=== PATIENT | female | born 2005 | race Two or more races ===

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

== ENCOUNTER 2024-02-20 22:04 | Inpatient (IN) | payer MEDICAID, OTHER ==
[~2024-02-20] VITALS: Ht 175.3 cm; Wt 67.7 kg
[~2024-02-20 22:04] MED LIST: BACDST PO; IBUP-1454 PO
--- NOTE | 2024-02-20 22:25 | ED.PDOC ---
GI ASSESSMENT HPI Comments 18 year old female brought in by family complaining of abdominal pain, nausea and vomiting. Patient states she developed sudden onset sharp, cramping intermittent epigastric abdominal pain yesterday, radiating to her lower back and associated with bouts of nausea and vomiting.Noted also to have productive cough. Denies any fever or changes in bowel habits. She does have history of diabetes and noted that her blood sugar levels has been elevated recently (>220) so she took 6 units of insulin prior to coming to the ER. Blood sugar upon arrival was 218. Chief Complaint: Abdominal Pain Time Seen by MD: 22:24 Primary Care Provider: OUT OF AREA Reviewed Notes: Nurses Notes Allergies: Coded Allergies: NO KNOWN ALLERGIES (Unverified , 02/20/24) Home Meds Active Scripts Ibuprofen (Ibuprofen) 600 Mg Tab, 1 TAB PO TID, #30 TAB Prov:TITO LAGUNAS 05/29/22 Sulfamethoxazole W/Trimethopri (Bactrim Ds Tablet) 1 Tab Tb, 1 TAB PO BID for 10 Days, #20 TAB Prov:TITO LAGUNAS 05/29/22 Information Source: Patient Mode of Arrival: Ambulatory Duration: Intermittent Prehospital treatment: None Quality: Cramping, Sharp Vomitus: Watery Stool: Normal Severity: Moderate Recent: None Recent Hx of: Diabetes Pain Location: Epigastric Modifying Factors: Nothing Associated sign and symptoms: Nausea, Vomiting, Abdominal Pain Past Medical History PAST MEDICAL HISTORY: DM Past Medical History (Other): Restrictive Cardiomyopathy Surgical History (Other): Heart Transplant 09/2019 RAFTSMAN History: Denies all RAFTSMAN Hx Family History Family History: Reviewed,noncontributory to illness Social History Smoker: Non-Smoker Alcohol: Denies ETOH Use Drugs: Denies Drug Use Lives In: Home Constitutional: denies: chills, diaphoresis, fatigue, fever, malaise, sweats, weakness, others EENTM: denies: blurred vision, double vision, ear bleeding, ear discharge, ear drainage, ear pain, ear ringing, eye pain, eye redness, hearing loss, mouth pain, mouth swelling, nasal discharge, nose bleeding, nose congestion, nose pain, photophobia, tearing, throat pain, throat swelling, voice changes, others Respiratory: reports: cough; denies: hemoptysis, orthopnea, SOB at rest, shortness of breath, SOB with excertion, stridor, wheezing, others Cardiovascular: denies: chest pain, dizzy spells, diaphoresis, Dyspnea on exertion, edema, irregular heart beat, left arm pain, lightheadedness, palpitations, PND, syncope, others Gastrointestinal: reports: abdominal pain, nausea, vomiting; denies: abdomen distended, blood streaked bowels, constipated, diarrhea, dysphagia, difficulty swallowing, hematemesis, melena, poor appetite, poor fluid intake, rectal bleeding, rectal pain, others Genitourinary: denies: abnormal vagina bleeding, burning, dyspareunia, dysuria, flank pain, frequency, hematuria, incontinence, pain, , vagina discharge, urgency, others Neurological: denies: dizziness, fainting, headache, left sided numbness, left sided weakness, numbness, paresthesia, pre-existing deficit, right sided numbness, right sided weakness, seizure, speech problems, tingling, tremors, weakness, others Musculoskeletal: reports: back pain; denies: gout, joint pain, joint swelling, muscle pain, muscle stiffness, neck pain, others Integumetry: denies: bruises, change in color, change in hair/nails, dryness, laceration, lesions, lumps, rash, wounds, others Allergic/Immunocompromised: denies: Difficulty Healing, Frequent Infections, Hives, Itching, others Hematologic/Lymphatic: denies: anemia, blood clots, easy bleeding, easy bruising, swollen glands, others Endocrine: denies: excessive hunger, excessive sweating, excessive thirst, excessive urination, flushing, intolerance to cold, intolerance to heat, unexplained weight gain, unexplained weight loss, others Psychiatric: denies: anxiety, bipolar disorder, depression, hopeless, panic disorder, schizophrenia, sleepless, suicidal, others Physical Exam General Appearance: Mild Distress HEENT: Other (Dry mucous membranes) Neck: Full Range of Motion, Normal Inspection Respiratory: Lungs Clear, No Accessory Muscle Use, No Respiratory Distress, Normal Breath Sounds Cardiovascular: No Edema, No JVD, Regular Rate/Rhythm Breast Exam: Deferred Gastrointestinal: Epigastric, LUQ, RUQ, Soft, Tenderness Genitalia: Deferred Pelvic: Deferred Rectal: Deferred Extremities: Normal inspection, Normal range of motion, Non-tender, No pedal edema Neurologic: Alert (Oriented x4), Normal Affect, Normal Mood, Other (Ambulatory without difficulty. No gross focal deficit.) Cerebellar Function: NOT DONE Reflexes: NOT DONE Skin: Dry, Pallor, Warm Lymphatic: NOT DONE EKG EKG : Comments Sinus tach, rate 123, normal intervals, leg itching borderline right axis deviation, she was on admission normal QRS, T-wave inversion with minimal ST depression in inferior lateral leads Was a procedure done? Was a procedure done?: No GI differential Dx Differential Diagnosis: Cholecystitis, Diverticular disease, Gastritis/PUD, Gastroenteritis, Inflammatory BD, Ischemic Bowel, Pancreatitis, UTI, Urolithiasis, Dehydration, Diabetes/ DKA, Electrolyte Imbalance, Food Poisoning, , Bacterial, Parasitic, Viral, Hypovolemia, Impaction, Stress Ulcer X-Ray, Labs, Meds, VS Vital Signs Date Time Temp Pulse Resp B/P (MAP) Pulse Ox O2 Delivery O2 Flow Rate FiO2 02/21/24 01:25 119 20 124/65 02/21/24 01:06 98.3 119 20 124/65 (84) 97 98.3 02/20/24 22:20 123 02/20/24 22:08 98.0 133 16 128/84 (99) 98 Lab Test 02/21/24 01:14 02/21/24 00:15 02/20/24 22:33 02/20/24 22:29 Range/Units Blood Gas Specimen Type Arterial Blood Gas Sample Site Left radial Blood Gas Patient Temperature 37.0 Arterial Blood Date Drawn [id number] Arterial Blood pH 7.560 *H 7.350-7.450 Arterial Blood Partial Pressure CO2 23.0 L 32.0-45.0 mmHg Arterial Blood Partial Pressure O2 96.6 83.0-108.0 mmHg Arterial Blood HCO3 20.1 L 21.0-28.0 mmol/L Arterial Blood Oxygen Saturation 98.2 H 94.0-98.0 % Arterial Blood Base Excess 0.2 -2.0-3.0 mmol/L Arterial Blood Oxyhemoglobin 97.1 94.0-98.0 % Arterial Blood Carboxyhemoglobin 0.4 L 0.5-1.5 % Arterial Blood Methemoglobin 0.7 0.0-1.5 % Nahun Test Yes Blood Gas Total Hemoglobin 16.20 H 12.0-16.0 g/dL Blood Gas Modality Room air FiO2 % 21.0 Blood Gas Critical Value Read Back Yes Blood Gas Notified Whom Patricio driver md Blood Gas Notified Time [id number] Blood Gas Notified By Rosamaria spear rrt Lactic Acid Level 2.8 *H 4.3 *H 0.4-2.0 mmol/L Troponin I High Sensitivity < 3 L 3 L </=34 ng/L Triglycerides Level Pending Cholesterol Level Pending LDL Cholesterol Pending HDL Cholesterol Pending Beta-Hydroxybutyric Acid 1.200 H < 0.4 mmol/L White Blood Count 8.5 4.4-10.8 10^3/uL Red Blood Count 5.78 H 4.0-5.20 10^6/uL Hemoglobin 17.5 H 12.2-16.2 g/dL Hematocrit 51.1 H 36.0-46.0 % Mean Corpuscular Volume 88.5 80.0-100.0 fL Mean Corpuscular Hemoglobin 30.3 28.0-32.0 pg Mean Corpuscular Hemoglobin Concent 34.2 32.0-36.0 g/dL Red Cell Distribution Width 13.0 11.8-14.3 % Platelet Count 283 140-450 10^3/uL Mean Platelet Volume 9.4 6.9-10.8 fL Neutrophils (%) (Auto) 78.0 37.0-80.0 % Lymphocytes (%) (Auto) 8.3 L 10.0-50.0 % Monocytes (%) (Auto) 12.1 H 0.0-12.0 % Eosinophils (%) (Auto) 0.8 0.0-7.0 % Basophils (%) (Auto) 0.8 0.0-2.0 % Neutrophils # (Auto) 6.6 1.6-8.6 10 ^3/uL Lymphocytes # (Auto) 0.7 0.4-5.4 10 ^3/uL Monocytes # (Auto) 1.0 0-1.3 10 ^3/uL Eosinophils # (Auto) 0.1 0-0.8 10 ^3/uL Basophils # (Auto) 0.1 0-0.2 10 ^3/uL Nucleated Red Blood Cells 0.0 % Sodium Level 138 136-145 mmol/L Potassium Level 3.5 3.5-5.1 mmol/L Chloride Level 102 98-107 mmol/L Carbon Dioxide Level 22 20-31 mmol/L Anion Gap 14 5-15 Blood Urea Nitrogen 7 L 9-23 mg/dL Creatinine 0.79 0.550-1.02 mg/dL Glomerular Filtration Rate Calc 110 >90 mL/min BUN/Creatinine Ratio 8.9 L 10.0-20.0 Serum Glucose 229 H 74-106 mg/dL Hemoglobin A1c 11.2 H <5.7 % A1C Calcium Level 11.6 H 8.7-10.4 mg/dL Total Bilirubin 0.8 0.2-1.0 mg/dL Aspartate Amino Transferase (AST) < 8 L 13-40 U/L Alanine Aminotransferase (ALT) 26 7-40 U/L Alkaline Phosphatase 177 H 46-116 U/L B-Type Natriuretic Peptide 59.96 0-100 pg/mL Total Protein 9.1 H 5.7-8.2 g/dL Albumin 5.8 H 3.2-4.8 g/dL Lipase 52 12-53 U/L Beta HCG, Quantitative 0.5 L 1.5-4.2 mIU/mL Test 02/20/24 22:18 02/20/24 22:15 Range/Units Influenza Type A Antigen Positive Negative Influenza Type B Antigen Negative Negative SARS-CoV-2 Antigen (Rapid) Negative NEGATIVE Urine Color Yellow Yellow Urine Clarity Turbid H Clear Urine pH 6.0 5.0-9.0 Urine Specific [place] 1.036 H 1.001-1.035 Urine Protein 2+ H Negative Urine Ketones 4+ H Negative Urine Blood 1+ H Negative /uL Urine Nitrite Negative Negative Urine Bilirubin Negative Negative Urine Urobilinogen 2 H Negative mg/dL Urine Leukocyte Esterase Negative Negative /uL Urine RBC 4 0 - 4 /hpf Urine WBC 5 0 - 5 /hpf Urine Squamous Epithelial Cells Few <5 /hpf Urine Bacteria None seen None Seen /hpf Urine Mucus Few None Seen Urine Glucose 4+ H Normal mg/dL Urine Opiates Screen Neg NEGATIVE Urine Fentanyl Screen Neg NEGATIVE Urine Barbiturates Screen Neg NEGATIVE Urine Phencyclidine Screen Neg NEGATIVE Urine Amphetamines Screen Neg NEGATIVE Urine Benzodiazepines Screen Neg NEGATIVE Urine Cocaine Screen Neg NEGATIVE Urine Cannabinoids Screen Pos NEGATIVE Current Medications Medications (Trade) Dose Ordered Sig/Nigel Route Start Time Stop Time Status Last Admin Sodium Chloride 1,000 ml @ 1,000 mls/hr Q1H ONCE IV 02/20/24 22:30 02/20/24 23:29 DC 02/21/24 01:24 Ondansetron HCl (Zofran) 4 mg ONCE ONCE IV 02/20/24 22:30 02/20/24 22:31 DC 02/21/24 01:24 Morphine Sulfate 4 mg ONCE ONCE IV 02/20/24 22:30 02/20/24 22:31 DC 02/21/24 01:25 Oseltamivir Phosphate (Tamiflu 75MG Capsule) 75 mg ONCE ONCE PO 02/20/24 23:15 02/20/24 23:16 DC 02/21/24 01:23 Sodium Chloride 1,000 ml @ 75 mls/hr [id number] ONCE IV 02/21/24 01:45 02/21/24 15:04 02/21/24 01:45 Potassium Chloride (Klor-Con Tablet) 40 meq ONCE ONCE PO 02/21/24 01:45 02/21/24 01:47 DC 02/21/24 01:45 PROCEDURE(s): CXRP - CHEST PORTABLE REASON: cough congestion ORDER NUMBER(s): [id number], ACCESSION NUMBER(s): [id number] CHEST RADIOGRAPH Indication: Chest Pain Technique: Single frontal view of the chest was obtained Comparison: None FINDINGS: Lines and Tubes: None Lungs: Clear Pleura: No effusion. No pneumothorax. Cardiomediastinal contours: Unremarkable Bones: Unremarkable IMPRESSION: 1. Clear lungs. EDURE(s): ABPL - CT AB PEL WO CON-NO ORAL OR IV REASON: upper abd and bilat flank pain n/v ORDER NUMBER(s): [id number], ACCESSION NUMBER(s): [id number] Exam: CT CT AB PEL WO CON-NO ORAL OR IV History: upper abd and bilat flank pain n/v Comparison Study: None available at time of dictation. Technique: Multidetector spiral CT of the abdomen was performed from lung bases to pubic symphysis. Imaging was performed without IV contrast. Axial, coronal and sagittal multiplanar reformats were obtained from the axial data set by the technologist. Radiation Dose : 1. Abdomen/Pelvis: CTDIvol 5 mGy, DLP 289 mGy*cm. Findings: Evaluation of solid organs is limited due to lack of intravenous contrast use. Lung Bases: No acute or significant lung base finding. Normal heart size. No pleural or pericardial effusion. Liver: The liver is normal in size. No focal lesions. Gallbladder and Biliary Tree: Unremarkable Spleen: Unremarkable Pancreas: The pancreas is grossly normal in appearance. Adrenal Glands: Unremarkable Kidneys: Kidneys are grossly normal without calculi or hydronephrosis. Bladder: Grossly unremarkable for degree of distention. Bowel: The stomach is grossly normal in appearance. Small bowel and colon are normal in caliber and distribution. The appendix is not visualized; however, no secondary findings of acute appendicitis identified. Ascites: Absent Lymphadenopathy: No mesenteric, retroperitoneal or periportal lymphadenopathy. Abdominal Wall and Mesentery: Unremarkable. Vasculature: The visualized abdominal aorta is normal in size and caliber. Evaluation of abdominal and pelvic vessels is limited due to lack of intravenous contrast. Pelvic Organs: Unremarkable Musculoskeletal: No aggressive focal bony lesions, acute fractures or dislocation. IMPRESSION: No acute abdominal or pelvic findings. END IMPRESSION: X-Ray, Labs, Meds, VS Comment 18-year-old female with a history of diabetes, cardiomyopathy status post heart transplant complaining of abdominal pain, nausea, vomiting and productive cough Vitals remarkable for heart rate 133 Exam remarkable for upper abdominal tenderness to palpation Rhythm strip independently interpreted by me: Sinus tach, rate 123, no ectopy. EKG sinus tach, diffuse T-wave inversion with minimal ST depression Chest x-ray unremarkable CT abdomen and pelvis unremarkable CBC unremarkable, CMP remarkable for glucose 229, UA abnormal consistent with volume contraction, lactate 4.3, BNP and troponin negative hCG negative Influenza a positive Patient treated with the following in the ED: 1 L 0.9 normal saline IV bolus, Zofran 4 mg IV, morphine 4 mg IV, Tamiflu 75 mg p.o. Plan is to admit the patient for lactate trend, IV hydration and emesis control. Time of 1ST Reevaluation: 22:18 Reevaluation 1ST: Unchanged Time of 2ND Reevaluation: 23:21 Reevaluation 2ND: Improved Patient Education/Counseling: Diagnosis, Treatment Family Education/Counseling: No Family Present Departure 1 Departure Time of Disposition: 23:10 Impression: Primary Impression: Influenza A Additional Impressions: Nausea and vomiting Qualified Codes: R11.2 - Nausea with vomiting, unspecified Dehydration Disposition: ADMITTED INPATIENT Admit to: Med Surg Condition: Guarded Critical Care Note Critical Care Time?: Yes (35 min-critical care time only) Critical care comment: Hyperglycemia Stability Stability form required: No Heart Score Heart Score: Heart Score Response (Comments) Value History N/A 0 EKG N/A 0 Age N/A 0 Risk Factors N/A 0 Troponin N/A 0 Total 0 I personally scribed for PARTH ALMODOVAR MD ([email or web address]) on 02/20/24 at 22:25. Electronically submitted by Eduardo Arteaga ([facility] I personally scribed for PARTH ALMODOVAR MD ([email or web address]) on 02/21/24 at 03:35. Electronically submitted by Eduardo Arteaga ([facility] PARTH ALMODOVAR MD Feb 20, 2024 22:25
[2024-02-20 22:49] LABS: Urine Bacteria None Seen /hpf (None Seen)
[2024-02-20 22:53] LABS: COVID19 ANTIGEN SOFIA FIA NEGATIVE (NEGATIVE)
[2024-02-20 22:55] LABS: Basophils # (auto) 0.1 10 ^3/uL (0-0.2); Basophils % (auto) 0.8 % (0.0-2.0); Eosinophils # (auto) 0.1 10 ^3/uL (0-0.8); Eosinophils % (auto) 0.8 % (0.0-7.0); Hematocrit 51.1 % (36.0-46.0); Hemoglobin 17.5 g/dL (12.2-16.2); Lymphocytes # (auto) 0.7 10 ^3/uL (0.4-5.4); Lymphocytes % (auto) 8.3 % (10.0-50.0); Mean Corpuscular Hemoglobin 30.3 pg (28.0-32.0); Mean Corpuscular Hgb Conc. 34.2 g/dL (32.0-36.0); Mean Corpuscular Volume 88.5 fL (80.0-100.0); Monocytes % (auto) 12.1 % (0.0-12.0); Neutrophils # (auto) 6.6 10 ^3/uL (1.6-8.6); Platelet Count (auto) 283 10^3/uL (140-450); Red Blood Cells 5.78 10^6/uL (4.0-5.20); White Blood Cell 8.5 10^3/uL (4.4-10.8)
[2024-02-20 23:00] LABS: Rapid Influenza A Positive (Negative); Rapid Influenza B Negative (Negative)
[2024-02-20 23:10] LABS: Alanine Aminotransferase 26 U/L (7-40); Albumin 5.8 g/dL (3.2-4.8); Alkaline Phosphatase 177 U/L (46-116); Anion Gap 14 (5-15); Aspartate Aminotransferase < 8 U/L (13-40); BUN/Creatinine Ratio 8.9 (10.0-20.0); Bilirubin, Total 0.8 mg/dL (0.2-1.0); Blood Urea Nitrogen 7 mg/dL (9-23); Calcium 11.6 mg/dL (8.7-10.4); Carbon Dioxide 22 mmol/L (20-31); Chloride 102 mmol/L (98-107); Glucose 229 mg/dL (74-106); Lipase 52 U/L (12-53); Potassium 3.5 mmol/L (3.5-5.1); Sodium 138 mmol/L (136-145)
[2024-02-20 23:10] LABS: Urine Blood 1+ /uL (Negative); Urine Clarity Turbid (Clear); Urine Color Yellow (Yellow); Urine Mucus FEW (None Seen); Urine Protein, UAD 2+ (Negative); Urine Specific Gravity 1.036 (1.001-1.035); Urine Squamous Epithelial Cell FEW /hpf (<5); Urine Urobilinogen 2 mg/dL (Negative); Urine WBC 5 /hpf (0 - 5)
[2024-02-20 23:11] LABS: Total Protein 9.1 g/dL (5.7-8.2)
[2024-02-20 23:14] LABS: Lactic Acid w/Reflex 4.3 mmol/L (0.4-2.0)
--- NOTE | 2024-02-21 00:14 | DVH ---
CHEST RADIOGRAPH Indication: Chest Pain Technique: Single frontal view of the chest was obtained Comparison: None FINDINGS: Lines and Tubes: None Lungs: Clear Pleura: No effusion. No pneumothorax. Cardiomediastinal contours: Unremarkable Bones: Unremarkable IMPRESSION: 1. Clear lungs.
--- NOTE | 2024-02-21 00:41 | DVH ---
Exam: CT CT AB PEL WO CON-NO ORAL OR IV History: upper abd and bilat flank pain n/v Comparison Study: None available at time of dictation. Technique: Multidetector spiral CT of the abdomen was performed from lung bases to pubic symphysis. Imaging was performed without IV contrast. Axial, coronal and sagittal multiplanar reformats were ob tained from the axial data set by the technologist. Radiation Dose : 1. Abdomen/Pelvis: CTDIvol 5 mGy, DLP 289 mGy*cm. Findings: Evaluation of solid organs is limited due to lack of intravenous contrast use. Lung Bases: No acute or significant lung base finding. Normal heart size. No pleural or pericardial effusion. Liver: The liver is normal in size. No focal lesions. Gallbladder and Biliary Tree: Unremarkable Spleen: Unremarkable Pancreas: The pancreas is grossly normal in appearance. Adrenal Glands: Unremarkable Kidneys: Kidneys are grossly normal without calculi or hydronephrosis. Bladder: Grossly unremarkable for degree of distention. Bowel: The stomach is grossly normal in appearance. Small bowel and colon are normal in caliber and d istribution. The appendix is not visualized; however, no secondary findings of acute appendicitis id entified. Ascites: Absent Lymphadenopathy: No mesenteric, retroperitoneal or periportal lymphadenopathy. Abdominal Wall and Mesentery: Unremarkable. Vasculature: The visualized abdominal aorta is normal in size and caliber. Evaluation of abdominal a nd pelvic vessels is limited due to lack of intravenous contrast. Pelvic Organs: Unremarkable Musculoskeletal: No aggressive focal bony lesions, acute fractures or dislocation. IMPRESSION: No acute abdominal or pelvic findings. END IMPRESSION:
[2024-02-21 01:21] LABS: Base Excess 0.2 mmol/L (-2.0-3.0)
[2024-02-21] MEDS: OSELTAMIVIR 75 MG CAP PO ONE (01:23)
[2024-02-21] MEDS: SODIUM CHLORIDE 0.9% 1,000 ML IV ONE ×2 (01:24→01:45)
[2024-02-21] MEDS: ONDANSETRON HCL 4 MG/2 ML VIAL IV ONE (01:24)
[2024-02-21] MEDS: MORPHINE SULFATE 4 MG/ML SYR/VIAL IV ONE (01:25)
[2024-02-21] MEDS ORDERED: DEXTROSE (50%) 50ML SYRG IV PRN (01:45)
[2024-02-21] MEDS: POTASSIUM CHL 20 Meq TABLET PO ONE (01:45)
[2024-02-21] MEDS ORDERED: ONDANSETRON HCL 4 MG/2 ML VIAL IV PRN (02:00)
[2024-02-21] MEDS ORDERED: SODIUM CHLORIDE 0.9% 500 ML IV ONE (02:00)
--- NOTE | 2024-02-21 02:04 | DVHHPRES ---
History of Present Illness Resident Creating Document: EFRAÍN GARCIA History of Present Illness This is a 18-year-old female with past medical history of tension, heart transplant four years ago on September 25, 2019 due to and hereditary cardiomyopathy, the patient is currently taking tacrolimus 2.5 mg b.i.d., sir olimus 2.5 mg daily to prevent rejection. Patient mentioned previous three possible heart transplant rejections, the patient also reports previous history of DKA (which apparently patient did not have a clear diagnosis of type 1 or type 2 diabetes mellitus). The patient presented to the ED due to right and left upper quadrant pain associated with nausea and three episodes of vomiting. The patient denies fever but reports chills, generalized body aches and malaise. Initial labs were showing an hemoglobin of 17.5 with an hematocrit of 51.1. Serum glucose on admission was 229 and anion gap was 14. Influenza a test came back positive. We ordered stat ABG, beta hydroxybutyric acid to rule out DKA. We will admit the patient for further assessment and management. Home medications: Tacrolimus 2.5 mg b.i.d., sirolimus 2.5 mg daily, Entresto, metoprolol, famotidine, Humalog 3 units for every 50 mg/dL above 150. Cardiovascular: HTN, Other (Heart transplant four years ago on September 25, 2019 due to hereditary restrictive cardiomyopathy) Endocrine: Diabetes Family History: None Smoke: No ALCOHOL: none Drugs: None Lives: with Family Domestic Violence: Neg Review of Systems Constitutional: Yes: Chills, Malaise; No: Fever, Sweats, Weakness, Other Eyes: No: Pain, Vision change, Conjunctivae inflammation, Eyelid inflammation, Other, Redness ENT: No: Ear pain, Ear discharge, Nose pain, Nose discharge, Nose congestion, Mouth pain, Mouth swelling, Throat pain, Throat swelling, Other Respiratory: No: Cough, Dry, Shortness of breath, SOB with excertion, Wheezing, Hemoptysis, Pleuritic Pain, Sputum, Wheezing, Other Cardiovascular: No: Chest Pain, Palpitations, Orthopnea, Paroxysmal Noc. Dyspnea, Edema, Lt Headedness, Other Gastrointestinal: Nausea, Vomiting, Abdominal Pain; No: Diarrhea, Constipation, Melena, Hematochezia, Other Genitourinary: No Dysuria, No Frequency, No Incontinence, No Hematuria, No Retention, No Other Musculoskeletal: No: other, neck pain, shoulder pain, arm pain, back pain, hand pain, leg pain, foot pain Skin: No: Rash, Lesions, Jaundice, Bruising, Other Neurological: No: Weakness, Numbness, Incoordination, Change in speech, Confusion, Seizures, Other Allergies: Coded Allergies: NO KNOWN ALLERGIES (Unverified , 02/20/24) Exam Vital Signs Vital Signs Date Time Temp Pulse Resp B/P (MAP) Pulse Ox O2 Delivery O2 Flow Rate FiO2 02/21/24 01:06 98.3 119 20 124/65 (84) 97 98.3 General Appearance: Alert, Oriented X3, Cooperative, No acute distress HEENT: Atraumatic, PERRLA, EOMI, Mucous membr. moist/pink Respiratory: Clear to auscultation, Normal air movement Cardiovascular: Regular rate, Normal S1, Normal S2, No murmurs Abdominal: Normal bowel sounds, Soft, No tenderness, No hepatospenomegaly Extremities: No clubbing, No cyanosis, No edema, Normal pulses, No tenderness/swelling Skin: No rashes, No breakdown, No significant lesion Neuro: Normal gait, Normal speech, Strength at 5/5 X4 ext, Normal tone, Sensation intact, Cranial nerves 3-12 NL, Reflexes 2+ Psych/Mental Status: Mental status NL, Mood NL Labs/Xrays Labs Test 02/21/24 00:15 02/20/24 22:29 02/20/24 22:18 02/20/24 22:15 Range/Units Lactic Acid Level 2.8 *H 0.4-2.0 mmol/L Troponin I High Sensitivity < 3 L </=34 ng/L White Blood Count 8.5 4.4-10.8 10^3/uL Red Blood Count 5.78 H 4.0-5.20 10^6/uL Hemoglobin 17.5 H 12.2-16.2 g/dL Hematocrit 51.1 H 36.0-46.0 % Mean Corpuscular Volume 88.5 80.0-100.0 fL Mean Corpuscular Hemoglobin 30.3 28.0-32.0 pg Mean Corpuscular Hemoglobin Concent 34.2 32.0-36.0 g/dL Red Cell Distribution Width 13.0 11.8-14.3 % Platelet Count 283 140-450 10^3/uL Mean Platelet Volume 9.4 6.9-10.8 fL Neutrophils (%) (Auto) 78.0 37.0-80.0 % Lymphocytes (%) (Auto) 8.3 L 10.0-50.0 % Monocytes (%) (Auto) 12.1 H 0.0-12.0 % Eosinophils (%) (Auto) 0.8 0.0-7.0 % Basophils (%) (Auto) 0.8 0.0-2.0 % Neutrophils # (Auto) 6.6 1.6-8.6 10 ^3/uL Lymphocytes # (Auto) 0.7 0.4-5.4 10 ^3/uL Monocytes # (Auto) 1.0 0-1.3 10 ^3/uL Eosinophils # (Auto) 0.1 0-0.8 10 ^3/uL Basophils # (Auto) 0.1 0-0.2 10 ^3/uL Nucleated Red Blood Cells 0.0 % Sodium Level 138 136-145 mmol/L Potassium Level 3.5 3.5-5.1 mmol/L Chloride Level 102 98-107 mmol/L Carbon Dioxide Level 22 20-31 mmol/L Anion Gap 14 5-15 Blood Urea Nitrogen 7 L 9-23 mg/dL Creatinine 0.79 0.550-1.02 mg/dL Glomerular Filtration Rate Calc 110 >90 mL/min BUN/Creatinine Ratio 8.9 L 10.0-20.0 Serum Glucose 229 H 74-106 mg/dL Calcium Level 11.6 H 8.7-10.4 mg/dL Total Bilirubin 0.8 0.2-1.0 mg/dL Aspartate Amino Transferase (AST) < 8 L 13-40 U/L Alanine Aminotransferase (ALT) 26 7-40 U/L Alkaline Phosphatase 177 H 46-116 U/L B-Type Natriuretic Peptide 59.96 0-100 pg/mL Total Protein 9.1 H 5.7-8.2 g/dL Albumin 5.8 H 3.2-4.8 g/dL Lipase 52 12-53 U/L Beta HCG, Quantitative 0.5 L 1.5-4.2 mIU/mL Influenza Type A Antigen Positive Negative Influenza Type B Antigen Negative Negative SARS-CoV-2 Antigen (Rapid) Negative NEGATIVE Urine Color Yellow Yellow Urine Clarity Turbid H Clear Urine pH 6.0 5.0-9.0 Urine Specific [place] 1.036 H 1.001-1.035 Urine Protein 2+ H Negative Urine Ketones 4+ H Negative Urine Blood 1+ H Negative /uL Urine Nitrite Negative Negative Urine Bilirubin Negative Negative Urine Urobilinogen 2 H Negative mg/dL Urine Leukocyte Esterase Negative Negative /uL Urine RBC 4 0 - 4 /hpf Urine WBC 5 0 - 5 /hpf Urine Squamous Epithelial Cells Few <5 /hpf Urine Bacteria None seen None Seen /hpf Urine Mucus Few None Seen Urine Glucose 4+ H Normal mg/dL Assessment/Plan Assessment/Plan Assessment/plan Acute abdominal pain with intractable nausea and vomiting, R/O DKA Uncontrolled hyperglycemia -initial blood glucose was 229, anion gap 14 -ABG showed respiratory alkalosis with metabolic compensation -ordered beta hydroxybutyric acid -ordered aggressive sliding scale insulin -NS 1L bolus -IV fluids at 75 cc/hour -replace potassium -start pain medication p.r.n. -Monitor electrolytes closely -CT scan of the abdomen and pelvis in back unremarkable Acute respiratory distress likely due to influenza a -start oseltamivir 75 mg b.i.d. -initial chest x-ray was grossly unremarkable, no evidence focal consolidations or pulmonary vascular congestion. -monitor saturation closely History of heart transplant on September 25, 2019 -patient is currently on tacrolimus 2.5 mg b.i.d. -sirolimus 2.5 mg daily -F/U with cardiology Primary hypertension -On Entresto and metoprolol at home, patinet does not remember dosage (waiting for reconcile meds) -NO BP meds at this time, BP is on normal range. Will add meds once home meds are verified. -Monitor BP closely Goals of care discussed with the patient at bedside, FULL CODE Plan discussed with Dr. Palomino Plan discussed with: Patient My Orders Orders - EFRAÍN GARCIA Procedure Category Date Status Time Abg W/ Co-Ox RT 02/21/24 Logged 01:02 Beta-Hydroxybutyrate LAB 02/21/24 Logged 01:02 Date of Service: Feb 21, 2024 Billing Provider: JOCE PALOMINO MD Common Visit Codes: [id number] INP/OBS CARE (HIGH) EFRAÍN GARCIA RESIDENT Feb 21, 2024 02:04 JOCE PALOMINO MD Feb 23, 2024 20:02
[2024-02-21 02:54] LABS: Amphetamine Screen, Urine Neg (NEGATIVE); Cannabinoid Screen, Urine Pos (NEGATIVE)
[2024-02-21 02:56] LABS: Barbiturate Scree,Urine Neg (NEGATIVE); Benzodiazephine Screen, Urine Neg (NEGATIVE); Cocaine Screen, Urine Neg (NEGATIVE); Opiate Scree,Urine Neg (NEGATIVE); Phencyclidine Screen, Urine Neg (NEGATIVE)
[2024-02-21 03:30] VITALS: RESP 16; O2SAT 98
[2024-02-21 04:25] LABS: HDL Cholesterol 54 mg/dL (40-59)
[2024-02-21 04:26] LABS: Cholesterol 227 mg/dL (< 200); LDL Cholesterol 157 mg/dL (< 100); Triglycerides 214 mg/dL (< 150)
[2024-02-21] MEDS: ACCU-CHEK COMFORT CURVE STRIP VI SCH (06:23)
[2024-02-21] MEDS: InsuLIN REG 1unit/0.01ml Soln (100units/ml) SC SCH (06:52)
[2024-02-21 10:00] LABS: Base Excess -0.2 mmol/L (-2.0-3.0)
[2024-02-21] MEDS: TACROLIMUS 1 MG CAP PO SCH (10:00)
[2024-02-21] MEDS: SIROLIMUS 1 MG TABLET PO SCH (10:00)
[2024-02-21] MEDS: SIROLIMUS 0.5 MG TABLET PO SCH (10:00)
[2024-02-21] MEDS: TACROLIMUS 0.5 MG CAP PO SCH (10:00)
[2024-02-21] MEDS: OSELTAMIVIR 75 MG CAP PO SCH (10:15)
[2024-02-21 10:30] VITALS: BP 115/79; RESP 16; O2SAT 99
[2024-02-21 10:46] LABS: Basophils # (auto) 0 10 ^3/uL (0-0.2); Basophils % (auto) 0.6 % (0.0-2.0); Eosinophils # (auto) 0 10 ^3/uL (0-0.8); Hematocrit 42.2 % (36.0-46.0); Hemoglobin 14.7 g/dL (12.2-16.2); Lymphocytes % (auto) 15.5 % (10.0-50.0); Mean Corpuscular Hemoglobin 30.5 pg (28.0-32.0); Mean Corpuscular Hgb Conc. 34.7 g/dL (32.0-36.0); Mean Corpuscular Volume 87.7 fL (80.0-100.0); Monocytes # (auto) 0.8 10 ^3/uL (0-1.3); Monocytes % (auto) 11.7 % (0.0-12.0); Neutrophils # (auto) 4.7 10 ^3/uL (1.6-8.6); Neutrophils % (auto) 72.2 % (37.0-80.0); Nucleated Red Blood Cells % 0.1 %; Platelet Count (auto) 236 10^3/uL (140-450); Red Blood Cells 4.81 10^6/uL (4.0-5.20); Red Cell Distribution Width 12.9 % (11.8-14.3); White Blood Cell 6.6 10^3/uL (4.4-10.8)
[2024-02-21 10:50] LABS: Alanine Aminotransferase 20 U/L (7-40); Albumin 4.7 g/dL (3.2-4.8); Anion Gap 9 (5-15); BUN/Creatinine Ratio 11.7 (10.0-20.0); Bilirubin, Total 0.5 mg/dL (0.2-1.0); Calcium 10.3 mg/dL (8.7-10.4); Carbon Dioxide 23 mmol/L (20-31); Chloride 105 mmol/L (98-107); Potassium 3.8 mmol/L (3.5-5.1); Sodium 137 mmol/L (136-145); Total Protein 7.3 g/dL (5.7-8.2)
[2024-02-21 10:59] LABS: Alkaline Phosphatase 138 U/L (46-116); Aspartate Aminotransferase < 8 U/L (13-40); Blood Urea Nitrogen 7 mg/dL (9-23); Glucose 185 mg/dL (74-106)
[2024-02-21] MEDS: ACETAMINOPHEN 325 MG TAB PO PRN (11:02)
[2024-02-21 12:00] VITALS: PULSE 102
[2024-02-21] MEDS ORDERED: TAMIFLU PO (12:30)
[2024-02-21] MEDS ORDERED: LEVO750T40 PO (12:30)
[2024-02-21 12:47] VITALS: TEMP 98.6
--- NOTE | 2024-02-21 15:03 | DVHDSRES ---
Discharge Summary Date of Admission Resident Creating Document: EFRAÍN GARCIA RESIDENT Feb 21, 2024 at 01:58 Date of Discharge: Feb 21, 2024 Admitting Diagnosis Acute abdominal pain to rule out DKA Labs/Diagnostic Data: Laboratory Results Test 02/21/24 10:11 02/21/24 09:55 02/21/24 01:14 02/21/24 00:15 White Blood Count 6.6 10^3/uL (4.4-10.8) Red Blood Count 4.81 10^6/uL (4.0-5.20) Hemoglobin 14.7 g/dL (12.2-16.2) Hematocrit 42.2 % (36.0-46.0) Mean Corpuscular Volume 87.7 fL (80.0-100.0) Mean Corpuscular Hemoglobin 30.5 pg (28.0-32.0) Mean Corpuscular Hemoglobin Concent 34.7 g/dL (32.0-36.0) Red Cell Distribution Width 12.9 % (11.8-14.3) Platelet Count 236 10^3/uL (140-450) Mean Platelet Volume 9.5 fL (6.9-10.8) Neutrophils (%) (Auto) 72.2 % (37.0-80.0) Lymphocytes (%) (Auto) 15.5 % (10.0-50.0) Monocytes (%) (Auto) 11.7 % (0.0-12.0) Eosinophils (%) (Auto) 0.0 % (0.0-7.0) Basophils (%) (Auto) 0.6 % (0.0-2.0) Neutrophils # (Auto) 4.7 10 ^3/uL (1.6-8.6) Lymphocytes # (Auto) 1.0 10 ^3/uL (0.4-5.4) Monocytes # (Auto) 0.8 10 ^3/uL (0-1.3) Eosinophils # (Auto) 0 10 ^3/uL (0-0.8) Basophils # (Auto) 0 10 ^3/uL (0-0.2) Nucleated Red Blood Cells 0.1 % Sodium Level 137 mmol/L (136-145) Potassium Level 3.8 mmol/L (3.5-5.1) Chloride Level 105 mmol/L (98-107) Carbon Dioxide Level 23 mmol/L (20-31) Anion Gap 9 (5-15) Blood Urea Nitrogen 7 mg/dL (9-23) Creatinine 0.60 mg/dL (0.550-1.02) Glomerular Filtration Rate Calc 132 mL/min (>90) BUN/Creatinine Ratio 11.7 (10.0-20.0) Serum Glucose 185 mg/dL (74-106) Lactic Acid Level 1.4 mmol/L (0.4-2.0) Calcium Level 10.3 mg/dL (8.7-10.4) Total Bilirubin 0.5 mg/dL (0.2-1.0) Aspartate Amino Transferase (AST) < 8 U/L (13-40) Alanine Aminotransferase (ALT) 20 U/L (7-40) Alkaline Phosphatase 138 U/L (46-116) Total Protein 7.3 g/dL (5.7-8.2) Albumin 4.7 g/dL (3.2-4.8) Blood Gas Specimen Type Arterial Blood Gas Sample Site Left radial Blood Gas Patient Temperature 37.0 Arterial Blood Date Drawn [id number] Arterial Blood pH 7.445 (7.350-7.450) Arterial Blood Partial Pressure CO2 34.6 mmHg (32.0-45.0) Arterial Blood Partial Pressure O2 92.4 mmHg (83.0-108.0) Arterial Blood HCO3 23.2 mmol/L (21.0-28.0) Arterial Blood Oxygen Saturation 97.5 % (94.0-98.0) Arterial Blood Base Excess -0.2 mmol/L (-2.0-3.0) Arterial Blood Oxyhemoglobin 96.2 % (94.0-98.0) Arterial Blood Carboxyhemoglobin 0.6 % (0.5-1.5) Arterial Blood Methemoglobin 0.7 % (0.0-1.5) [place] Test Yes Blood Gas Total Hemoglobin 14.70 g/dL (12.0-16.0) Blood Gas Modality Room air FiO2 % 21.0 Blood Gas Critical Value Read Back Yes Blood Gas Notified Whom Patricio driver md Blood Gas Notified Time [id number] Blood Gas Notified By Rosamaria spear rrt Troponin I High Sensitivity < 3 ng/L (</=34) Triglycerides Level 214 mg/dL (< 150) Cholesterol Level 227 mg/dL (< 200) LDL Cholesterol 157 mg/dL (< 100) HDL Cholesterol 54 mg/dL (40-59) Beta-Hydroxybutyric Acid 1.200 mmol/L (< 0.4) Test 02/20/24 22:29 02/20/24 22:18 02/20/24 22:15 Hemoglobin A1c 11.2 % A1C (<5.7) B-Type Natriuretic Peptide 59.96 pg/mL (0-100) Lipase 52 U/L (12-53) Beta HCG, Quantitative 0.5 mIU/mL (1.5-4.2) Influenza Type A Antigen Positive (Negative) Influenza Type B Antigen Negative (Negative) SARS-CoV-2 Antigen (Rapid) Negative (NEGATIVE) Urine Color Yellow (Yellow) Urine Clarity Turbid (Clear) Urine pH 6.0 (5.0-9.0) Urine Specific [place] 1.036 (1.001-1.035) Urine Protein 2+ (Negative) Urine Ketones 4+ (Negative) Urine Blood 1+ /uL (Negative) Urine Nitrite Negative (Negative) Urine Bilirubin Negative (Negative) Urine Urobilinogen 2 mg/dL (Negative) Urine Leukocyte Esterase Negative /uL (Negative) Urine RBC 4 /hpf (0 - 4) Urine WBC 5 /hpf (0 - 5) Urine Squamous Epithelial Cells Few /hpf (<5) Urine Bacteria None seen /hpf (None Seen) Urine Mucus Few (None Seen) Urine Glucose 4+ mg/dL (Normal) Urine Opiates Screen Neg (NEGATIVE) Urine Fentanyl Screen Neg (NEGATIVE) Urine Barbiturates Screen Neg (NEGATIVE) Urine Phencyclidine Screen Neg (NEGATIVE) Urine Amphetamines Screen Neg (NEGATIVE) Urine Benzodiazepines Screen Neg (NEGATIVE) Urine Cocaine Screen Neg (NEGATIVE) Urine Cannabinoids Screen Pos (NEGATIVE) Other Laboratory Tests 02/21/24 10:11 Brief Hx & Hospital Course: This is a 18-year-old female with a past medical history of tension and a 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 She is currently taking tacrolimus 2.5 mg b.i.d. and sirolimus 2.5 mg daily to prevent rejection. The patient mentioned three previous possible heart transplant rejections and reports a history of DKA, though she did not have a clear diagnosis of type 1 or type 2 diabetes mellitus. She presented to the ED with right and left upper quadrant pain, nausea, and three episodes of vomiting. She denies fever but reports chills, generalized body aches, and malaise. Initial labs showed a hemoglobin of 17.5, hematocrit of 51.1, serum glucose of 229, and an anion gap of 14. An influenza A test came back positive. We ordered a stat ABG and beta- hydroxybutyric acid to rule out DKA and will admit the patient for further assessment and management. Home medications include tacrolimus 2.5 mg b.i.d., sirolimus 2.5 mg daily, Entresto, metoprolol, famotidine, and Humalog 3 units for every 50 mg/dL above 150. Cardiovascular history includes HTN and a heart transplant on September 25, 2019, due to hereditary restrictive cardiomyopathy. Hospital course: Abdominal CT scan was normal, 3 showed bilateral lower zone ground-glass opacities, studies were significant for the influenza type B positive, otherwise grossly normal. The patient was put on treatment of influenza type B and possible atypical pneumonia, given Tamiflu 75 mg b.i.d., normal saline, and continued home medicine. Hb A1c 11.2, and the patient's glucose were controlled with insulin during hospital admission. On 02/20, the patient was feeling better since admission, clinically and hemodynamically was stable, discharge plan discussed with the patient and the patient were discharge. Discharge plan: Follow up with the PCP within 1 week of the discharge. Follow up with the endocrinology within 1 week of the discharge for adjustment of diabetes medication Tablet Tamiflu 75 mg b.i.d. for 5 days Tablet levofloxacin 750 mg daily for 5 days Operations or Procedures [place] [id number] Ph: [phone] DIAGNOSTIC IMAGING Diagnostic Imaging Report : [id number] Signed PATIENT: PATRICIA MARLOWACCT: [id number] UNIT: [id number] : 2005 LOC: ER ROOM / BED: / AGE / SEX: 18 / F ADM STATUS: REG ER SERVICE [id number] ORDERING PHYSICIAN: PARTH ALMODOVAR MD PROCEDURE(s): CXRP - CHEST PORTABLE REASON: cough congestion ORDER NUMBER(s): [id number], ACCESSION NUMBER(s): [id number] CHEST RADIOGRAPH Indication: Chest Pain Technique: Single frontal view of the chest was obtained Comparison: None FINDINGS: Lines and Tubes: None Lungs: Clear Pleura: No effusion. No pneumothorax. Cardiomediastinal contours: Unremarkable Bones: Unremarkable IMPRESSION: 1. Clear lungs. ATED BY: AMA CARDENAS DO DICTATED DATE/TIME: 02/21/2411 SIGNED BY: AMA CARDENAS DO SIGNED DATE/TIME: 02/21/2411 CC: Condition at Discharge: Good Final Diagnosis/Problems List Acute abdominal pain with intractable nausea and vomiting, likely due to influenza type a Ruled out DKA Diabetes mellitus, likely type 1 with Uncontrolled hyperglycemia Sepsis, likely due to influenza a/pneumonia Pneumonia, likely due to Gram-positive Gram-negative atypical Stephanie/influenza type B Acute respiratory distress likely due to influenza a History of heart transplant on September 25, 2019 Primary hypertension Dehydration Dyslipidemia Marijuana use disorder Discharge Disposition: Home Discharge Instruct/Medications Diet: Consistent carbohydrate Activity: No Restrictions, As Tolerated Follow Up/Referral: follow up with the PCP withtin one week after discharge follow up with the endocrinology on out patient basis for adjusment of DM medicine Medications: tab levofloxacin 750 mg dialy for 5 days tab tamiflu 75mg daily for 5 days continue home medicine Discharge Statement: "Patient was advised to return to the ER or call 911 if any headaches, dizziness, shortness of breath, chest pain, abdominal pain, bleeding, fevers, or worsening of medical condition. Patient was counseled about treatment plan, medications, possible side effects, patientverbalized understanding. All questions were answered to the best of my ability. This discharge took greater then 30 minutes in planning, reviewing documentation, counseling the patient, and discussing with other team members." ASSESSMENT ASSESSMENT Assessment Influenza/Flu hyperglycemia Date of Service: Feb 21, 2024 Billing Provider: MARLON RAIN MD Common Visit Codes: 80805-UNJ/OBS DISCH DAY >30min JENNIFERABRANSYEDA RESDIENT Feb 21, 2024 15:03 MARLON RAIN MD Feb 26, 2024 09:34
[2024-02-21] MEDS ORDERED: InsuLIN REG 1unit/0.01ml Soln (100units/ml) SC SCH (22:00)
--- NOTE | 2024-02-25 14:31 | ECG ---
[facility] Test Date: 2024-02-20 Test Time: 22:20:15 Pat Name: PATRICIA MARLOW Department: ER Room: [address] [place] [address] Gender: F Automobile Mechanic Supervisor: SONDRA : 2005 Requested By: PARTH KELLEY Order Number: [id number] Reading MD: Al Dc Measurements Intervals [place] Rate: 123 P: 59 TN: 174 QRS: 102 QRSD: 90 T: 262 QT: 291 QTc: 417 Interpretive Statements Sinus tachycardia Probable left atrial enlargement Borderline right axis deviation Nonspecific T abnormalities, diffuse leads Electronically Signed On 02-26-2024 9:43:03 PST by Al Dc Please click the below link to view image of tracing.
== END 2024-02-21 13:54 | disposition home or self-care (01) | DRG 720 ==
LOC: ER 22:04 → TELE 02-21 01:58
PROVIDERS: ADMIT Student in an Organized Health Care Education/Training Program; ATTEND Emergency Medicine
DX: A41.89 Other specified sepsis (principal); J10.08 Influenza due to other identified influenza virus with other specified pneumonia; J15.69 Pneumonia due to other Gram-negative bacteria; Z94.1 Heart transplant status; I42.5 Other restrictive cardiomyopathy; E86.0 Dehydration; Z20.822 Contact with and (suspected) exposure to COVID-19; E78.5 Hyperlipidemia, unspecified; I10 Essential (primary) hypertension; E10.65 Type 1 diabetes mellitus with hyperglycemia; J15.9 Unspecified bacterial pneumonia
CPT/HCPCS: 36415; 36600; 71045; 74176; 80053; 80061; 80307; 81001; 82010; 82805; 82962; 83036; 83605; 83690; 83880; 84484; 84702; 85025; 87086; 87426; 87804; 99291; G0378; J1815; J2405; J7507